=== PATIENT | male | born 1970 | race Caucasian/White ===

== ENCOUNTER 2020-02-05 17:54 | Outpatient (CLI) | payer BC, SELFPAY ==
[2020-02-05 18:15] LABS: Hematocrit 44.5 % (40.0-54.0); Hemoglobin 15.1 g/dL (14.0-18.0); Mean Corpuscular HGB Conc 33.9 g/dL (32.0-36.0); Mean Corpuscular Hemoglobin 31.4 pg (27.0-31.0); Mean Corpuscular Volume 92.5 fL (78.0-102.0); Platelet Count Result 202 K/mm3 (150-420); Red Blood Count 4.81 M/mm3 (4.70-6.10); Red Cell Distribution Width 12.9 % (11.6-14.4); White Blood Count 8.4 K/mm3 (4.8-10.8)
[2020-02-05 19:01] LABS: Alanine Aminotransferase 44 U/L (16-63); Albumin Level 4.6 g/dL (3.4-5.0); Alkaline Phosphatase 67 U/L (46-116); Anion Gap 8 mmol/L (8-16); Aspartate Amino Transferase 22 U/L (15-37); Bilirubin,Total 0.6 mg/dL (0.00-1.00); Blood Urea Nitrogen 22 mg/dL (7-18); Calcium 9.4 mg/dL (8.5-10.1); Carbon Dioxide 28 mmol/L (21-32); Chloride 103 mmol/L (98-108); Cholesterol 203 mg/dL (0-200); Estimated Glomerular Filt Rate > 60; Glucose 91 mg/dL (70-99); HDL Direct 37 mg/dL (40-60); LDL Cholesterol Calculated 129 mg/dL (<130); Osmolality Calculated 291 mOsm/kg (285-295); Potassium 4.4 mmol/L (3.5-5.1); Sodium 139 mmol/L (136-145); Total Protein 7.6 g/dL (6.4-8.2); Triglycerides 183 mg/dL (0-150)
== END 2020-02-05 17:55 | disposition home or self-care (01) ==
LOC: CHSLAB 17:58
PROVIDERS: PCP Family Medicine; Visit Provider Family Medicine
DX: Z00.00 Encounter for general adult medical examination without abnormal findings (principal)
CPT/HCPCS: 36415; 80053; 80061; 85027

== ENCOUNTER 2020-05-22 07:33 | Outpatient (CLI) | payer BC, SELFPAY ==
[2020-05-22 08:38] LABS: Cholesterol 150 mg/dL (0-200); HDL Direct 42 mg/dL (40-60); LDL Cholesterol Calculated 89 mg/dL (<130); Triglycerides 97 mg/dL (0-150)
== END 2020-05-22 07:34 | disposition home or self-care (01) ==
LOC: CHSLAB 07:37
PROVIDERS: PCP Family Medicine; Visit Provider Family Medicine
DX: R03.0 Elevated blood-pressure reading, without diagnosis of hypertension (principal); F17.210 Nicotine dependence, cigarettes, uncomplicated; E66.9 Obesity, unspecified; Z00.00 Encounter for general adult medical examination without abnormal findings
CPT/HCPCS: 36415; 80061

== ENCOUNTER 2021-03-01 16:13 | Outpatient (CLI) | payer BC, SELFPAY ==
[2021-03-01 16:29] LABS: Hematocrit 42.1 % (40.0-54.0); Hemoglobin 14.4 g/dL (14.0-18.0); Mean Corpuscular HGB Conc 34.2 g/dL (32.0-36.0); Mean Corpuscular Hemoglobin 32.1 pg (27.0-31.0); Mean Corpuscular Volume 93.8 fL (78.0-102.0); Mean Platelet Volume 10.2 fl (8.7-11.0); Platelet Count Result 194 K/mm3 (150-420); Red Blood Count 4.49 M/mm3 (4.70-6.10); Red Cell Distribution Width 12.8 % (11.6-14.4); White Blood Count 6.7 K/mm3 (4.8-10.8)
[2021-03-01 17:01] LABS: Alanine Aminotransferase 40 U/L (16-63); Albumin Level 4.3 g/dL (3.4-5.0); Alkaline Phosphatase 70 U/L (46-116); Anion Gap 10 mmol/L (8-16); Aspartate Amino Transferase 18 U/L (15-37); Bilirubin,Total 0.7 mg/dL (0.00-1.00); Blood Urea Nitrogen 14 mg/dL (7-18); Carbon Dioxide 28 mmol/L (21-32); Chloride 104 mmol/L (98-108); Cholesterol 152 mg/dL (0-200); Estimated Glomerular Filt Rate > 60; Glucose 87 mg/dL (70-99); HDL Direct 45 mg/dL (40-60); LDL Cholesterol Calculated 83 mg/dL (<130); Osmolality Calculated 293 mOsm/kg (285-295); Potassium 4.1 mmol/L (3.5-5.1); Sodium 142 mmol/L (136-145); Total Protein 7.1 g/dL (6.4-8.2); Triglycerides 118 mg/dL (0-150)
== END 2021-03-01 16:14 | disposition home or self-care (01) ==
PROVIDERS: PCP Family Medicine; Visit Provider Family Medicine
DX: Z00.00 Encounter for general adult medical examination without abnormal findings (principal)
CPT/HCPCS: 36415; 80053; 80061; 85027

== ENCOUNTER 2022-02-08 16:45 | Outpatient (CLI) | payer BC, SELFPAY ==
[2022-02-08 17:11] LABS: Hematocrit 42.1 % (40.0-54.0); Hemoglobin 14.7 g/dL (14.0-18.0); Mean Corpuscular HGB Conc 34.9 g/dL (32.0-36.0); Mean Corpuscular Hemoglobin 32.6 pg (27.0-31.0); Mean Corpuscular Volume 93.3 fL (78.0-102.0); Mean Platelet Volume 10.2 fl (8.7-11.0); Platelet Count Result 225 K/mm3 (150-420); Red Blood Count 4.51 M/mm3 (4.70-6.10); Red Cell Distribution Width 12.4 % (11.6-14.4); White Blood Count 9.7 K/mm3 (4.8-10.8)
[2022-02-08 17:34] LABS: Alanine Aminotransferase 28 U/L (16-63); Albumin Level 4.5 g/dL (3.4-5.0); Alkaline Phosphatase 62 U/L (46-116); Anion Gap 7 mmol/L (8-16); Aspartate Amino Transferase 20 U/L (15-37); Bilirubin,Total 0.8 mg/dL (0.00-1.00); Blood Urea Nitrogen 16 mg/dL (7-18); Calcium 9.1 mg/dL (8.5-10.1); Carbon Dioxide 30 mmol/L (21-32); Chloride 102 mmol/L (98-108); Cholesterol 174 mg/dL (0-200); Estimated Glomerular Filt Rate > 60; Glucose 94 mg/dL (70-99); HDL Direct 47 mg/dL (40-60); LDL Cholesterol Calculated 101 mg/dL (<130); Osmolality Calculated 289 mOsm/kg (285-295); Potassium 3.9 mmol/L (3.5-5.1); Sodium 139 mmol/L (136-145); Total Protein 7.5 g/dL (6.4-8.2); Triglycerides 128 mg/dL (0-150)
== END 2022-02-08 16:46 | disposition home or self-care (01) ==
LOC: CHSLAB 16:47
PROVIDERS: PCP Family Medicine; Visit Provider Family Medicine
DX: Z00.00 Encounter for general adult medical examination without abnormal findings (principal)
CPT/HCPCS: 36415; 80053; 80061; 85027

== ENCOUNTER 2024-01-09 07:20 | Outpatient (CLI) | payer OTHER, SELFPAY ==
[2024-01-09 07:34] LABS: Basophils Absolute Auto 0.03 K/mm3 (0.00-0.10); Basophils Percent Auto 0.5 % (0.0-1.0); Eosinophils Absolute Auto 0.07 K/mm3 (0.02-0.50); Eosinophils Percent Auto 1.1 % (1.0-6.0); Hematocrit 43.1 % (40.0-54.0); Immature Granulocyte Absolute 0.03 K/mm3 (0.00-0.00); Immature Granulocyte Percent A 0.5 % (0.0-0.0); Lymphocytes Percent Auto 41.9 % (18.0-42.0); Mean Corpuscular HGB Conc 34.8 g/dL (32-36); Mean Corpuscular Hemoglobin 31.4 pg (27.0-31.0); Mean Corpuscular Volume 90.2 fL (78.0-102.0); Mean Platelet Volume 9.6 fl (8.7-11.0); Monocytes Absolute Auto 0.55 K/mm3 (0.10-0.90); Monocytes Percent Auto 8.9 % (2.0-11.0); Neutrophils Absolute Auto 2.92 K/mm3 (1.70-7.20); Neutrophils Percent Auto 47.1 % (50.0-70.0); Platelet Count Result 204 K/mm3 (150-420); Red Blood Count 4.78 M/mm3 (4.70-6.10); Red Cell Distribution Width 12.5 % (11.6-14.4); White Blood Count 6.2 K/mm3 (4.8-10.8)
[2024-01-09 08:39] LABS: Alanine Aminotransferase 30 U/L (16-63); Albumin Level 3.8 g/dL (3.4-5.0); Alkaline Phosphatase 71 U/L (46-116); Anion Gap 6 mmol/L (4-12); Aspartate Amino Transferase 13 U/L (15-37); Bilirubin,Total 0.5 mg/dL (0.00-1.00); Blood Urea Nitrogen 18 mg/dL (7-18); Calcium 8.9 mg/dL (8.5-10.1); Carbon Dioxide 30 mmol/L (21-32); Chloride 103 mmol/L (98-108); Cholesterol 178 mg/dL (0-200); Estimated Glomerular Filt Rate > 60; Glucose 100 mg/dL (70-99); HDL Direct 39 mg/dL (40-60); LDL Cholesterol Calculated 111 mg/dL (<130); Osmolality Calculated 289 mOsm/kg (285-295); Potassium 4.6 mmol/L (3.5-5.1); Sodium 139 mmol/L (136-145); Total Protein 6.8 g/dL (6.4-8.2); Triglycerides 142 mg/dL (0-150)
[2024-01-09 08:50] LABS: Thyroid Stimulating Hormone Reflex 0.97 u/IU/mL (0.36-3.74)
== END 2024-01-09 07:21 | disposition home or self-care (01) ==
PROVIDERS: PCP Family Medicine; Visit Provider Family Medicine
DX: Z00.00 Encounter for general adult medical examination without abnormal findings (principal); E03.9 Hypothyroidism, unspecified
CPT/HCPCS: 36415; 80053; 80061; 84443; 85025